=== PATIENT | female | born 1990 | race Caucasian/White ===

== ENCOUNTER 2021-08-15 13:31 | Emergency (ER) | payer OTHER ==
[~2021-08-15] VITALS: Ht 162.6 cm; Wt 122.2 kg
[2021-08-15 13:38] VITALS: BP 146/98
[2021-08-15 14:21] LABS: BASOPHILS % (AUTO) 0.3 % (0.0-2.0); EOSINOPHILS # (AUTO) 0.1 K/uL (0-0.4); EOSINOPHILS % (AUTO) 1.3 % (0.0-4.0); HEMATOCRIT 36.3 % (36-48); HEMOGLOBIN 11.9 g/dL (12.0-16.0); LYMPHOCYTES # (AUTO) 1.8 K/uL (2.5-16.5); MEAN CORPUSCULAR HEMOGLOBIN 28 pg (27-31); MEAN CORPUSCULAR HGB CONC 33 g/dL (33-37); MEAN CORPUSCULAR VOLUME 85.2 fL (80-94); MONOCYTES # (AUTO) 0.7 K/uL (0.8-1.0); MONOCYTES % (AUTO) 9.8 % (1.7-9.3); NEUTROPHILS # (AUTO) 4.5 K/uL (1.8-7.7); NEUTROPHILS % (AUTO) 63.6 % (42.2-75.2); PLATELET COUNT (AUTO) 257 K/uL (140-450); RED BLOOD CELL COUNT(AUTO) 4.25 MIL/uL (4.20-5.40); RED CELL DISTRIBUTION WIDTH 14.3 % (11.6-13.7)
[2021-08-15 14:28] LABS: APPEARANCE,URINE CLEAR (CLEAR); BILIRUBIN,URINE NEGATIVE (NEGATIVE); BLOOD, URINE NEGATIVE (NEGATIVE); COLOR,URINE YELLOW (YELLOW); LEUKOCYTE ESTERASE ,URINE NEGATIVE (NEGATIVE); NITRITE, URINE NEGATIVE (NEGATIVE); UGLUCOSE NEGATIVE (NEGATIVE)
[2021-08-15 14:33] LABS: ALBUMIN 3.7 g/dL (3.4-5.0); CARBON DIOXIDE 25.8 mmol/L (21-32); CREATININE 0.6 mg/dL (0.6-1.3); POTASSIUM 3.8 mmol/L (3.5-5.1); TOTAL BILIRUBIN 0.4 mg/dL (0.0-1.0)
--- NOTE | 2021-08-15 15:14 | NUR ---
AMBULATED TO BED 11
--- NOTE | 2021-08-15 15:26 | NUR ---
31/ PRESENTS TO ED WITH C/O RUQ AND RLQ PAIN X3 DAYS. PATIENT STATES SHE RECENTLY HAD BYPASS SURGERY AND STATES "I DONT KNOW IF I NOW HAVE AN INFECTION." PATIENT STATES SHE HAS NOT TAKEN ANYTHING FOR PAIN. DENIES NAUSEA, VOMITING, DIARRHEA, CHEST PAIN,SOB, COUGH, FEVER, URINARY SYMPTOMS OR CHILLS. REPORTS 7/10 SHARP PAIN THAT WORSENS WITH TOUCH OR MOVEMENT.
[2021-08-15] MEDS ORDERED: AMOX75PD47 PO (15:38)
[2021-08-15] MEDS ORDERED: OXYC5SOL PO (15:38)
[2021-08-15] MEDS ORDERED: FLUC150T PO (15:38)
--- NOTE | 2021-08-15 15:55 | NUR ---
Patient discharged with v/s stable. Written and verbal after care instructions given and explained. Patient alert, oriented and verbalized understanding of instructions. Ambulatory with steady gait. All questions addressed prior to discharge. ID band removed. Patient advised to follow up with PMD. Rx of AUGMENTIN 250-62.5/5ML, DIFLUCAN AND OXYCODONE HCL given. Patient educated on indication of medication including possible reaction and side effects. Opportunity to ask questions provided and answered.
[2021-08-15 16:00] VITALS: BP 145/84
== END 2021-08-15 15:55 | disposition home or self-care (01) ==
LOC: MED 13:31
DX: K52.9 Noninfective gastroenteritis and colitis, unspecified (principal); Z98.890 Other specified postprocedural states; Z79.1 Long term (current) use of non-steroidal anti-inflammatories (NSAID); Z79.891 Long term (current) use of opiate analgesic; Z79.899 Other long term (current) drug therapy
CPT/HCPCS: 36415; 80053; 81003; 81025; 83690; 85025; 99284

== ENCOUNTER 2022-05-15 16:11 | Emergency (ER) | payer MEDICAID, OTHER ==
[~2022-05-15] VITALS: Ht 162.6 cm; Wt 95.7 kg
[~2022-05-15 16:11] MED LIST: AMOX75PD47 PO; FLUC150T PO; OXYC5SOL PO
[2022-05-15 16:17] VITALS: BP 140/78
[2022-05-15] MEDS ORDERED: ONDANSETRON 4 MG/2 ML VIAL IVP ONE (16:30)
[2022-05-15] MEDS ORDERED: NACL 0.9% 1,000 ML IV ONE (16:30)
--- NOTE | 2022-05-15 16:43 | NUR ---
LAB AT PATIENT BEDSIDE
[2022-05-15 16:51] LABS: BASOPHILS % (AUTO) 0.3 % (0.0-2.0); EOSINOPHILS # (AUTO) 0.1 K/uL (0-0.4); EOSINOPHILS % (AUTO) 0.8 % (0.0-4.0); HEMATOCRIT 35.9 % (36-48); HEMOGLOBIN 11.6 g/dL (12.0-16.0); LYMPHOCYTES # (AUTO) 2.1 K/uL (2.5-16.5); LYMPHOCYTES % (AUTO) 18.5 % (20.5-51.1); MEAN CORPUSCULAR HEMOGLOBIN 25 pg (27-31); MEAN CORPUSCULAR HGB CONC 32 g/dL (33-37); MONOCYTES # (AUTO) 0.8 K/uL (0.8-1.0); NEUTROPHILS # (AUTO) 8.4 K/uL (1.8-7.7); NEUTROPHILS % (AUTO) 73.4 % (42.2-75.2); PLATELET COUNT (AUTO) 270 K/uL (140-450); RED BLOOD CELL COUNT(AUTO) 4.55 MIL/uL (4.20-5.40); RED CELL DISTRIBUTION WIDTH 16.5 % (11.6-13.7); WHITE BLOOD COUNT (AUTO) 11.5 K/uL (4.8-10.8)
--- NOTE | 2022-05-15 16:54 | NUR ---
PT GIVEN ORAL CONTRAST BEDSIDE
[2022-05-15 16:55] LABS: BILIRUBIN,URINE NEGATIVE (NEGATIVE); BLOOD, URINE 1+ (NEGATIVE); COLOR,URINE YELLOW (YELLOW); LEUKOCYTE ESTERASE ,URINE 1+ (NEGATIVE); NITRITE, URINE NEGATIVE (NEGATIVE); PH,URINE 6.5 (5.0-9.0); UGLUCOSE NEGATIVE (NEGATIVE)
--- NOTE | 2022-05-15 16:55 | NUR ---
32Y FEMALE BIB SELF DUE TO UPPER ABDOMINAL PAIN, N/V/D X1 DAY. PER PATIENT SHE ATE SOME FOOD YESTERDAY THAT HAS CAUSED FOR HER STOMACH TO BECOME UPSET. TENDERNESS NOTED UPON PALPATION ON THE LUQ. BOWEL SOUNDS ACTIVE AND ABDOMEN IS SOFT. PT DENIES CP OR SOB. PT A&OX4. DENIES ANY DYSURIA. PAIN 8/10 AND CRAMPING LIKE PMH: GASTRIC BYPASS NKA
[2022-05-15 16:56] LABS: APPEARANCE,URINE HAZY (CLEAR)
[2022-05-15 17:03] LABS: RBC,URINE 11-20 (MOD) /HPF (0-5); WBC,URINE 80-100 /HPF (0-5)
[2022-05-15 17:09] LABS: ALBUMIN 3.6 g/dL (3.4-5.0); CREATININE 0.6 mg/dL (0.6-1.3); TOTAL BILIRUBIN 0.5 mg/dL (0.0-1.0)
[2022-05-15] MEDS ORDERED: MORPHINE SULFATE 4 MG/ML SYR IVP ONE (18:00)
--- NOTE | 2022-05-15 19:13 | NUR ---
Pt report given to JENNIFER GUZMAN. Transfer of care at this time.
--- NOTE | 2022-05-15 19:28 | NUR ---
PT TAKEN TO CT.
--- NOTE | 2022-05-15 19:34 | NUR ---
PT RETURNED FROM CT.
[2022-05-15] MEDS ORDERED: DICYCLOMINE HCL LIQUID 20 MG, ALUMINUM HYD/MAG/SIMETHICONE 30 ML, LIDOCAINE VISCOUS 2% ... PO ONE ×3 (19:45)
[2022-05-15] MEDS ORDERED: ALUMINUM HYD/MAG/SIMETHICONE 30 ML UDC ONE (19:48)
[2022-05-15] MEDS ORDERED: DICYCLOMINE HCL LIQUID 10 MG/5 ML UDC ONE (19:48)
[2022-05-15] MEDS ORDERED: SUCR1TAB35 PO (20:43)
[2022-05-15] MEDS ORDERED: ONDA-188 PO (20:43)
[2022-05-15 20:50] VITALS: BP 138/74
--- NOTE | 2022-05-15 20:50 | NUR ---
Patient discharged with v/s stable. Written and verbal after care instructions given and explained. Patient verbalized understanding. Ambulatory with steady gait. All questions addressed prior to discharge. Advised to follow up with PMD.
== END 2022-05-15 20:50 | disposition home or self-care (01) ==
LOC: MED 16:11
DX: R11.2 Nausea with vomiting, unspecified (principal); D64.9 Anemia, unspecified; R10.11 Right upper quadrant pain; Z98.0 Intestinal bypass and anastomosis status
CPT/HCPCS: 36415; 74176; 76705; 80053; 81001; 81025; 83690; 85025; 87086; 96361; 96374; 96375; 99285; J2270; J2405; J7030; Q0092

== ENCOUNTER 2022-05-29 12:16 | Emergency (ER) | payer MEDICAID ==
[~2022-05-29] VITALS: Ht 162.6 cm; Wt 94.9 kg
[~2022-05-29 12:16] MED LIST changes: +ONDA-188 PO; +SUCR1TAB35 PO
[2022-05-29 12:31] VITALS: BP 139/71
[2022-05-29 12:38] VITALS: BP 139/71
--- NOTE | 2022-05-29 14:58 | NUR ---
meet at this time Addendum: 05/29/22 at 1511 by [facility] pt [email or web address] at this time
== END 2022-05-29 14:58 | disposition left against medical advice (07) ==
LOC: MED 12:16
DX: R50.9 Fever, unspecified (principal); Z20.822 Contact with and (suspected) exposure to COVID-19; R09.81 Nasal congestion; M79.10 Myalgia, unspecified site; R03.0 Elevated blood-pressure reading, without diagnosis of hypertension; K21.9 Gastro-esophageal reflux disease without esophagitis; Z98.84 Bariatric surgery status
CPT/HCPCS: 99281

== ENCOUNTER 2024-03-18 00:55 | Emergency (ER) | payer MEDICAID ==
[~2024-03-18] VITALS: Ht 167.6 cm; Wt 77.1 kg
[2024-03-18 01:01] VITALS: O2SAT 100
[2024-03-18 01:09] VITALS: BP 160/73; PULSE 107; RESP 20; TEMP 98.1; O2SAT 100
[2024-03-18 01:18] LABS: BASOPHILS % (AUTO) 0.4 % (0.0-2.0); EOSINOPHILS # (AUTO) 0.1 K/uL (0-0.4); EOSINOPHILS % (AUTO) 0.7 % (0.0-4.0); HEMATOCRIT 31.1 % (36-48); HEMOGLOBIN 9.7 g/dL (12.0-16.0); LYMPHOCYTES # (AUTO) 4.4 K/uL (2.5-16.5); LYMPHOCYTES % (AUTO) 44.5 % (20.5-51.1); MEAN CORPUSCULAR HEMOGLOBIN 21 pg (27-31); MEAN CORPUSCULAR HGB CONC 31 g/dL (33-37); MEAN CORPUSCULAR VOLUME 66.9 fL (80-94); MONOCYTES # (AUTO) 0.9 K/uL (0.8-1.0); MONOCYTES % (AUTO) 9.4 % (1.7-9.3); NEUTROPHILS # (AUTO) 4.4 K/uL (1.8-7.7); PLATELET COUNT (AUTO) 496 K/uL (140-450); RED BLOOD CELL COUNT(AUTO) 4.65 MIL/uL (4.20-5.40); RED CELL DISTRIBUTION WIDTH 20.3 % (11.6-13.7); WHITE BLOOD COUNT (AUTO) 9.8 K/uL (4.8-10.8)
[2024-03-18 01:27] LABS: ANION GAP 19.4 (8-16); CALCIUM 9.3 mg/dL (8.5-10.1); CARBON DIOXIDE 21.8 mmol/L (21-32); CREATININE 0.9 mg/dL (0.6-1.3); POTASSIUM 3.2 mmol/L (3.5-5.1)
== END 2024-03-18 01:12 | disposition home or self-care (01) ==
LOC: MED 00:55
DX: F41.9 Anxiety disorder, unspecified (principal); K21.9 Gastro-esophageal reflux disease without esophagitis; Z79.899 Other long term (current) drug therapy
CPT/HCPCS: 36415; 80048; 84484; 85025; 93005; 99284